=== PATIENT | male | born 1940 | race Caucasian/White ===

== ENCOUNTER 2016-06-15 21:56 | Emergency (ER) | payer MEDICARE, OTHER | END 2016-06-15 23:07 | disposition home or self-care (01) | DX: S01.01XA Laceration without foreign body of scalp, initial encounter (principal); W07.XXXA Fall from chair, initial encounter; Y92.009 Unspecified place in unspecified non-institutional (private) residence as the place of occurrence of the external cause; C91.10 Chronic lymphocytic leukemia of B-cell type not having achieved remission; Z95.5 Presence of coronary angioplasty implant and graft; Z85.828 Personal history of other malignant neoplasm of skin ==

== ENCOUNTER 2016-09-13 11:19 | Emergency (ER) | payer MEDICARE, OTHER ==
[2016-09-13 11:40] VITALS: BP 142/78
--- NOTE | 2016-09-13 13:35 | ED Physician Documentation ---
History of Present Illness - Stated complaint Stated Complaint: RASH ALL OVER - Chief complaint Chief Complaint: General - History obtained from History obtained from: Patient, Family () - History of Present Illness Timing: Today (Early last month developed allergic reaction with hives to Zithromax, was on steroid for quite some time and stopped about 5 days ago and the hives returned today.) Review of Systems Constitutional: denies: Fever, Chills Cardiac: denies: Chest pain / pressure, Palpitations Respiratory: denies: Dyspnea, Cough PD PAST MEDICAL HISTORY - Past Medical History Cardiovascular: None Respiratory: None Neuro: Head injury Endocrine/Autoimmune: None GI: GERD : None HEENT: Other Psych: None Musculoskeletal: None Derm: None - Past Surgical History Past Surgical History: Yes General: Hiatal hernia repair Cardiovascular: Coronary stent Derm: Skin cancer surgery - Present Medications Home Medications: Ambulatory Orders Medication Instructions Recorded Confirmed Propranolol ER [Inderal LA] 60 mg PO BID 12/15/14 09/13/16 Cholecalciferol (Vitamin D3) 2,000 unit PO DAILY 03/06/15 09/13/16 [Vitamin D3] Omeprazole 20 mg PO BID 03/06/15 09/13/16 oxyCODONE [Roxicodone] 5 mg PO Q6H PRN 03/06/15 09/13/16 Valacyclovir HCl [Valtrex] 500 mg PO BID 06/04/15 09/13/16 Acetaminophen [Tylenol] 500 mg PO Q8HR PRN 10/15/15 09/13/16 Prednisone 10 mg PO DAILY #10 tablet 09/13/16 - Allergies Allergies/Adverse Reactions: Allergies Allergy/AdvReac Type Severity Reaction Status Date / Time azithromycin Allergy Rash Verified 09/13/16 11:40 amlodipine AdvReac Edema Verified 06/15/16 22:17 fenofibrate nanocrystallized AdvReac Unknown Verified 06/15/16 22:17 * [From Tricor] fenofibrate,micronized * AdvReac Unknown Verified 06/15/16 22:17 [From Tricor] lisinopril AdvReac Respiratory Verified 06/15/16 22:17 - Social History Does the pt smoke?: No Smoking Status: Never smoker Does the pt drink ETOH?: Yes Does the pt have substance abuse?: No - Immunizations Immunizations are current?: Yes - POLST Patient has POLST: No PD ED PE NORMAL - Vitals Vital signs reviewed: Yes - General General: No acute distress, Well developed/nourished - HEENT HEENT: Pharynx benign - Respiratory Respiratory: No respiratory distress, Clear bilaterally - Derm Derm: Other (Mild urticaria, wrist flexor creases and behind the shoulders) - Psych Psych: Normal mood, Normal affect Results - Vitals Vitals: Vital Signs - 24 hr 09/13/16 11:33 Heart Rate 58 L Respiratory 16 Rate Blood Pressure 142/78 H O2 Saturation 96 Oxygen O2 Source Room air Departure - Departure Disposition: Home, Self Care Clinical Impression: Urticaria Condition: Good Record reviewed to determine appropriate education?: Yes Instructions: ED Urticaria Prescriptions: Prednisone 10 mg PO DAILY #10 tablet Comments: Take a steroid for 3 days, then take the rest with you and your trip should you have a recurrence. You can also take 25 mg/one tablet of Benadryl every 6 hours as needed for itching. Your blood pressure was elevated today on check in to the emergency department. This does not mean that you have hypertension, it is a common phenomenon to check into the emergency department and have elevated blood pressure. I recommend that you see your primary care physician within the week to have it rechecked when you're feeling better.
== END 2016-09-13 13:38 | disposition home or self-care (01) ==
LOC: ED 11:19
DX: L50.9 Urticaria, unspecified (principal); R03.0 Elevated blood-pressure reading, without diagnosis of hypertension
CPT/HCPCS: 99283

== ENCOUNTER 2016-11-07 20:19 | Emergency (ER) | payer MEDICARE, OTHER ==
[2016-11-07 21:30] LABS: BASOPHILS % (AUTO) 1.3 %; EOSINOPHILS % (AUTO) 0.7 %; HCT - HEMATOCRIT 43.9 % (42.0-52.0); LYMPHOCYTES % (AUTO) 30.7 %; MEAN CORPUSCULAR HEMOGLOBIN 31.1 pg (27.0-31.0); MEAN CORPUSCULAR VOLUME 97.3 fL (80.0-94.0); MEAN PLATELET VOLUME 8.3 fL (7.4-11.4); MONOCYTES % (AUTO) 21.6 %; NEUTROPHILS % (AUTO) 45.7 %; RED BLOOD COUNT 4.51 10^6/uL (4.70-6.10); RED CELL DISTRIBUTION WIDTH 14.2 % (12.0-15.0)
--- NOTE | 2016-11-07 21:33 | ED Physician Documentation ---
PD HPI FOCAL NEURO - Stated complaint Stated Complaint: MEDICATION SIDE EFFECT - Chief complaint Chief Complaint: Neuro - History obtained from History obtained from: Patient, Family () - History of Present Illness Timing - onset: Other (76-year-old gentleman with CLL and thrombocytopenia, recently restarted on tranexamic acid and a new medication (Nplate) with increasing word finding difficulties that became acutely worse at 5 PM tonight. He has had ongoing mild headaches for the last 3 weeks.) Review of Systems Ten Systems: 10 systems reviewed and negative Constitutional: reports: Fever Ears: reports: Reviewed and negative Nose: reports: Reviewed and negative Throat: reports: Reviewed and negative PD PAST MEDICAL HISTORY - Past Medical History Past Medical History: Yes Cardiovascular: None Respiratory: None Neuro: Head injury Endocrine/Autoimmune: None GI: GERD : None HEENT: Other Psych: None Musculoskeletal: None Derm: None Other Past Medical History: CLL & MDS - Past Surgical History Past Surgical History: Yes General: Hiatal hernia repair Cardiovascular: Coronary stent Derm: Skin cancer surgery - Present Medications Home Medications: Ambulatory Orders Medication Instructions Recorded Confirmed Propranolol ER [Inderal LA] 60 mg PO BID 12/15/14 11/07/16 Cholecalciferol (Vitamin D3) 2,000 unit PO DAILY 03/06/15 11/07/16 [Vitamin D3] Omeprazole 20 mg PO BID 03/06/15 11/07/16 oxyCODONE [Roxicodone] 5 mg PO Q6H PRN 03/06/15 11/07/16 Valacyclovir HCl [Valtrex] 500 mg PO BID 06/04/15 11/07/16 Acetaminophen [Tylenol] 500 mg PO Q8HR PRN 10/15/15 11/07/16 Romiplostim IM 11/07/16 Tranexamic Acid 650 mg PO BID 11/07/16 11/07/16 - Allergies Allergies/Adverse Reactions: Allergies Allergy/AdvReac Type Severity Reaction Status Date / Time azithromycin Allergy Rash Verified 11/07/16 21:20 amlodipine AdvReac Edema Verified 11/07/16 21:20 fenofibrate nanocrystallized AdvReac Unknown Verified 11/07/16 21:20 * [From Tricor] fenofibrate,micronized * AdvReac Unknown Verified 11/07/16 21:20 [From Tricor] lisinopril AdvReac Respiratory Verified 11/07/16 21:20 - Social History Does the pt smoke?: No Smoking Status: Never smoker Does the pt drink ETOH?: Yes Does the pt have substance abuse?: No - Family History Family history: reports: Non contributory - Immunizations Immunizations are current?: Yes - POLST Patient has POLST: No PD ED PE NORMAL - Vitals Vital signs reviewed: Yes - General General: No acute distress, Well developed/nourished - HEENT HEENT: PERRL, EOMI - Neck Neck: Supple, no meningeal sign, No bony TTP, No bruit - Cardiac Cardiac: RRR, No murmur - Respiratory Respiratory: No respiratory distress, Clear bilaterally - Abdomen Abdomen: Soft, Non tender - Derm Derm: Normal color, Warm and dry, Other (Pet[place]ia all over) - Extremities Extremities: No deformity, No tenderness to palpate - Neuro Neuro: No motor deficit, No sensory deficit - Psych Psych: Normal mood, Normal affect NIHSS - Time Time: 21:10 - Level of Consciousness Level of consciousness: (0) Alert, Keenly responsive LOC Questions: (2) Answers neither correct LOC Commands: (0) Performs both correctly - Gaze Best Gaze: (0) Normal - Visual Visual: (0) No loss - Facial Palsy Facial Palsy: (0) Normal, symmetrical movement - Motor Arms (both separate) Motor Arm (right): (0) No drift Motor Arm (left): (0) No drift - Motor Legs (both separate) Motor Leg (right): (0) No drift Motor Leg (left): (0) No drift - Limb Ataxia Limb Ataxia: (0) Absent - Sensory Sensory: (0) Normal - Best Language Best Language: (2) Severe aphasia - Dysarthria Dysarthria: (0) Normal - Extinction and Inattention (formally neg Extinction and inattention: (0) No abnormality - Total Score/Results Total Score/Result: 4 Results - Vitals Vitals: Vital Signs - 24 hr 11/07/16 11/07/16 11/07/16 20:34 21:10 21:31 Temperature 36.1 C L Heart Rate 64 63 64 Respiratory 17 16 15 Rate Blood Pressure 186/78 H 167/71 H 167/71 H O2 Saturation 97 98 100 11/07/16 11/07/16 11/07/16 22:05 22:24 22:45 Temperature Heart Rate 64 62 62 Respiratory 18 18 17 Rate Blood Pressure 167/85 H 156/77 H 152/75 H O2 Saturation 96 97 97 Oxygen O2 Source Room air - EKG (time done) 2058 Rate: Rate (enter#) (61) Rhythm: NSR [place]: Normal Intervals: Normal [place] QRS: Normal Ischemia: Q waves (small inferior) Computer interpretation: Agree with computer - Labs Labs: Laboratory Tests 11/07/16 11/07/16 11/07/16 21:05 21:05 21:05 WBC 13.0 H RBC 4.51 L Hgb 14.0 Hct 43.9 MCV 97.3 H MCH 31.1 H MCHC 32.0 RDW 14.2 Plt Count 17 L* MPV 8.3 Neut # Not Reportable Lymph # Not Reportable [place] # Not Reportable Eos # Not Reportable Baso # Not Reportable Absolute Nucleated RBC Not Reportable Total Counted 100 Band Neuts % (Manual) 3 Reactive Lymphs % (Man) 16 Neutrophils # (Manual) 5.6 Lymphocytes # (Manual) 4.7 H Monocytes # (Manual) 2.6 H Eosinophils # (Manual) 0.1 Nucleated RBCs 1 Differential Comment MANUAL DIFFERENTIAL WBC Morphology 1+ VACUOLATION RBC Morph Micro Appear 1+ POLYCHROMASIA PT 14.5 H INR 1.3 H APTT 43.2 H Sodium 134 L Potassium 4.1 Chloride 102 Carbon Dioxide 26 Anion Gap 6.0 BUN 13 Creatinine 0.7 Estimated GFR (MDRD) 109 Glucose 113 H POC Whole Bld Glucose Calcium 9.3 Total Bilirubin 0.7 AST 80 H ALT 105 H Alkaline Phosphatase 58 Total Creatine Kinase 76 CK-MB (CK-2) Troponin I Total Protein 7.1 Albumin 4.1 Globulin 3.0 Albumin/Globulin Ratio 1.4 Lipase 43 11/07/16 11/07/16 21:05 21:08 WBC RBC Hgb Hct MCV MCH MCHC RDW Plt Count MPV Neut # Lymph # [place] # Eos # Baso # Absolute Nucleated RBC Total Counted Band Neuts % (Manual) Reactive Lymphs % (Man) Neutrophils # (Manual) Lymphocytes # (Manual) Monocytes # (Manual) Eosinophils # (Manual) Nucleated RBCs Differential Comment WBC Morphology RBC Morph Micro Appear PT INR APTT Sodium Potassium Chloride Carbon Dioxide Anion Gap BUN Creatinine Estimated GFR (MDRD) Glucose POC Whole Bld Glucose 104 H Calcium Total Bilirubin AST ALT Alkaline Phosphatase Total Creatine Kinase CK-MB (CK-2) 1.3 Troponin I < 0.04 Total Protein Albumin Globulin Albumin/Globulin Ratio Lipase - Rads (name of study) CT Head Radiology: EMP read contemporaneously (No acute abnormality, stable left temporal encephalomalacia) PD MEDICAL DECISION MAKING - ED course ED course: 76-year-old gentleman with history of thrombocytopenia presents with acutely worse aphasia which has been somewhat gradual in onset. Given the not completely acute time course and his severe thrombocytopenia I do not think he is a TPA candidate. CT head shows no acute changes. Called to Dr. Campbell for observation/admission at 10:[address] Campbell and requests transfer to tertiary facility for onc/neuro consult given pt complexity. Accepted by hospitalist, Dr Stern at [facility] at [phone] Departure - Departure Disposition: 02 Transfer Acute Care Hosp Clinical Impression: Aphasia, Thrombocytopenia Condition: Stable
[2016-11-07 21:36] LABS: INR 1.3 (0.8-1.2); PT - PROTHROMBIN TIME 14.5 secs (9.9-12.6)
[2016-11-07 21:43] LABS: PARTIAL THROMBOPLASTIN TIME 43.2 secs (24.9-33.3)
[2016-11-07 21:44] LABS: ALBUMIN/GLOBULIN RATIO 1.4 (1.0-2.2); BILIRUBIN,TOTAL 0.7 mg/dL (0.2-1.0); CALCIUM 9.3 mg/dL (8.5-10.3); CREATININE 0.7 mg/dL (0.6-1.2); POTASSIUM 4.1 mmol/L (3.5-5.0); TOTAL PROTEIN 7.1 g/dL (6.7-8.2)
[2016-11-07 21:49] LABS: TROPONIN I < 0.04 ng/mL (<0.49)
[2016-11-07 21:50] LABS: BAND NEUTROPHILS % (MANUAL) 3 %; CREATINE KINASE MB 1.3 ng/mL (0.6-6.3); EOSINOPHILS % (MANUAL) 1 %; LYMPHOCYTES % (MANUAL) 20 %; NEUTROPHILS % (MANUAL) 40 %; TOTAL CELLS COUNTED 100
[2016-11-07 21:51] LABS: NP AUTO DIFFERENTIAL? YES; NP MAN DIFFERENTIAL? NO; WBC MORPHOLOGY (MULTIPLE) 1+ VACUOLATION (NORMAL)
[2016-11-07] MEDS ORDERED: ACETAMINOPHEN 325 MG TABLET PO STA (22:46)
[2016-11-07] MEDS ORDERED: ACETAMINOPHEN 325 MG TABLET PO ONE (22:49)
--- NOTE | 2016-11-07 22:49 | CT Preliminary Report ---
Exam: CT Head W/O IMPRESSION: 1. No acute intracranial process. 2. Stable left temporal encephalomalacia. 3. Increased mucosal thickening in the right frontal sinus compared to the pre-brain CT from 06/15/19 17. [facility] SITE ID: [id number]
--- NOTE | 2016-11-07 22:51 | CT Report ---
EXAM: CT HEAD EXAM DATE: 11/07/2016 10:20 PM. CLINICAL HISTORY: Aphasia. COMPARISON: Brain CT from 06/15/2016. TECHNIQUE: Multiaxial CT images were obtained from the foramen magnum to the vertex. IV contrast: Non e. Reformats: Coronal. In accordance with CT protocol optimization, one or more of the following dose reduction techniques w ere utilized for this exam: automated exposure control, adjustment of mA and/or KV based on patient s ize, or use of iterative reconstructive technique. FINDINGS: Parenchyma: No intraparenchymal hemorrhage. No evidence of mass, midline shift, or CT findings of acu te infarction. Moderate left temporal encephalomalacia is stable. Ariza-white differentiation is disti nct elsewhere in the brain. Extraaxial Spaces: Normal for age. No subdural or epidural collections identified. Ventricles: The ventricles and cortical sulci are moderately enlarged, consistent with age-related ti ssue loss. Sinuses: The orbits and mastoid sinuses are unremarkable. There is increased mucosal thickening in th e right frontal sinus compared to the prior CT. Bones: No evidence of fracture or calvarial defect. Other: Mild diffuse chronic microangiopathic white matter changes are evident. Mild intracranial athe rosclerosis is noted. IMPRESSION: 1. No acute intracranial process. 2. Stable left temporal encephalomalacia. 3. Increased mucosal thickening in the right frontal sinus compared to the pre-brain CT from 06/15/19 17. [facility] Referring Provider Line: [phone] SITE ID: [id number]
[2016-11-07 23:43] VITALS: BP 148/74
== END 2016-11-07 23:53 | disposition short-term general hospital (02) ==
LOC: ED 20:19
DX: R47.01 Aphasia (principal); D69.6 Thrombocytopenia, unspecified; C91.10 Chronic lymphocytic leukemia of B-cell type not having achieved remission; R94.31 Abnormal electrocardiogram [ECG] [EKG]; D46.9 Myelodysplastic syndrome, unspecified; Z95.5 Presence of coronary angioplasty implant and graft
CPT/HCPCS: 36415; 70450; 80053; 82550; 82553; 83690; 84484; 85025; 85610; 85730; 93005; 99285; A9270

== ENCOUNTER 2016-11-07 23:59 | Outpatient (CLI) | payer MEDICARE, OTHER | END 2016-11-08 | disposition short-term general hospital (02) | LOC: EMS 23:59 | PROVIDERS: ATTEND Surgery | DX: R47.02 Dysphasia (principal) | CPT/HCPCS: A0425; A0426 ==

== ENCOUNTER 2017-01-24 14:49 | Outpatient (CLI) | payer MEDICARE, OTHER | END 2017-01-24 14:50 | disposition critical access hospital (66) | LOC: EMS 14:49 | PROVIDERS: ATTEND Surgery | DX: S09.90XA Unspecified injury of head, initial encounter (principal); V09.09XA Pedestrian injured in nontraffic accident involving other motor vehicles, initial encounter; Y92.009 Unspecified place in unspecified non-institutional (private) residence as the place of occurrence of the external cause | CPT/HCPCS: A0425; A0429 ==

== ENCOUNTER 2017-01-24 14:57 | Emergency (ER) | payer MEDICARE, OTHER ==
[2017-01-24 15:05] VITALS: BP 173/84
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
--- NOTE | 2017-01-24 15:49 | CT Preliminary Report ---
Exam: CT Head W/O IMPRESSION: 1. Negative for acute hemorrhage, localizing edema or mass effect. 2. 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 [facility] SITE ID: [id number]
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
--- NOTE | 2017-01-24 15:55 | CT Preliminary Report ---
Exam: CT Cervical Spine W/O IMPRESSION: 1. Negative for acute fracture and subluxation. 2. Mild degenerative disease. 3. Cervical lymphadenopathy. Right-sided central line. The lymph nodes are larger than 05/15/2015 and presumably represent malignancy. [facility] SITE ID: [id number]
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
--- NOTE | 2017-01-24 17:40 | XRAY Preliminary Report ---
Exam: XR Tib/Fib RT IMPRESSION: Mild soft tissue swelling noted about the calf region without underlying osseous abnormal ity. [facility] SITE ID: [id number]
--- NOTE | 2017-01-24 17:42 | XRAY Report ---
EXAM: RIGHT TIBIA/FIBULA RADIOGRAPHY EXAM DATE: 01/24/2017 05:18 PM. CLINICAL HISTORY: Calf contusion swelling. COMPARISON: None. TECHNIQUE: 2 views. FINDINGS: Bones: Normal. No fracture or bone lesion. Joints: The visualized knee and ankle joints are normal. No effusions. Soft Tissues: There is mild soft tissue swelling noted about the calf region. IMPRESSION: Mild soft tissue swelling noted about the calf region without underlying osseous abnormal ity. [facility] Referring Provider Line: [phone] SITE ID: [id number]
== END 2017-01-24 19:48 | disposition home or self-care (01) ==
LOC: EDUNIT# → ED 14:57
DX: S16.1XXA Strain of muscle, fascia and tendon at neck level, initial encounter (principal); S80.11XA Contusion of right lower leg, initial encounter; S00.81XA Abrasion of other part of head, initial encounter; V09.00XA Pedestrian injured in nontraffic accident involving unspecified motor vehicles, initial encounter; Y93.53 Activity, golf; Y92.39 Other specified sports and athletic area as the place of occurrence of the external cause; K21.9 Gastro-esophageal reflux disease without esophagitis; Z85.828 Personal history of other malignant neoplasm of skin
CPT/HCPCS: 70450; 72125; 99283; 99284

== ENCOUNTER 2017-05-17 12:58 | Outpatient (CLI) | payer MEDICARE, OTHER | END 2017-05-17 12:59 | disposition critical access hospital (66) | LOC: EMS 12:58 | PROVIDERS: ATTEND Surgery | DX: R53.1 Weakness (principal) | CPT/HCPCS: A0425; A0429 ==

== ENCOUNTER 2017-05-17 13:07 | Emergency (ER) | payer MEDICARE, OTHER ==
[2017-05-17] MEDS ORDERED: SODIUM CHLORIDE 0.9% 1,000 ML IV ONE ×2 (13:53→15:55)
--- NOTE | 2017-05-17 13:55 | ED Physician Documentation ---
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 Last night he told his he was too weak to get up to go to bed.She has brought him here today with decreased interaction and decreased oral intake of fluids. Review of Systems Constitutional: denies: Fever Eyes: denies: Decreased vision Ears: denies: Ear pain Nose: denies: Congestion Throat: denies: Sore throat Cardiac: denies: Chest pain / pressure, Palpitations Respiratory: denies: Dyspnea, Cough GI: denies: Abdominal Pain, Nausea, Vomiting : denies: Dysuria, Frequency Skin: denies: Rash Musculoskeletal: denies: Neck pain, Back pain Neurologic: reports: Generalized weakness, Headache. denies: Focal weakness, Numbness, Head injury PD PAST MEDICAL HISTORY - Past Medical History Cardiovascular: None Respiratory: None Neuro: TIA, Head injury Endocrine/Autoimmune: None GI: GERD : None HEENT: Other Psych: None Musculoskeletal: None Derm: None - Past Surgical History Past Surgical History: Yes General: Hiatal hernia repair Cardiovascular: Coronary stent Derm: Skin cancer surgery - Present Medications Home Medications: Ambulatory Orders Medication Instructions Recorded Confirmed Propranolol ER [Inderal LA] 60 mg PO DAILY 12/15/14 05/17/17 Cholecalciferol (Vitamin D3) 2,000 unit PO DAILY 03/06/15 05/17/17 [Vitamin D3] Omeprazole 20 mg PO DAILY 03/06/15 05/17/17 oxyCODONE [Roxicodone] 5 mg PO Q6H PRN 03/06/15 05/17/17 Valacyclovir HCl [Valtrex] 500 mg PO BID 06/04/15 05/17/17 Acetaminophen [Tylenol] 500 mg PO Q8HR PRN 10/15/15 05/17/17 Tranexamic Acid 1,300 mg PO TID 11/07/16 05/17/17 Multivitamin [Multiple Vitamins] 1 tab PO DAILY 12/01/16 05/17/17 - Allergies Allergies/Adverse Reactions: Allergies Allergy/AdvReac Type Severity Reaction Status Date / Time azithromycin Allergy Rash Verified 11/07/16 21:20 amlodipine AdvReac Edema Verified 11/07/16 21:20 fenofibrate nanocrystallized AdvReac Unknown Verified 11/07/16 21:20 * [From Tricor] fenofibrate,micronized * AdvReac Unknown Verified 11/07/16 21:20 [From Tricor] lisinopril AdvReac Respiratory Verified 11/07/16 21:20 - Social History Does the pt smoke?: No Smoking Status: Never smoker Does the pt drink ETOH?: Yes Does the pt have substance abuse?: No - Immunizations Immunizations are current?: Yes - POLST Patient has POLST: No PD ED PE NORMAL - Vitals Vital signs reviewed: Yes (hypertensive mild ) - General General: No acute distress, Well developed/nourished - HEENT HEENT: Atraumatic, PERRL, Other (dry mucous membranes) - Neck Neck: Supple, no meningeal sign, No bony TTP - Cardiac Cardiac: RRR, Other (2/6 holosystolic murmer at LSB) - Respiratory Respiratory: No respiratory distress, Clear bilaterally - Abdomen Abdomen: Soft, Non tender - Back Back: No CVA TTP, No spinal TTP - Derm Derm: Normal color, Warm and dry, No rash - Extremities Extremities: No deformity, No edema - Neuro Neuro: No motor deficit, No sensory deficit Eye Opening: Spontaneous Motor: Obeys Commands Verbal: Oriented GCS Score: 15 - Psych Psych: Normal mood, Normal affect Results - Vitals Vitals: Vital Signs - 24 hr 05/17/17 05/17/17 05/17/17 13:08 14:21 16:01 Temperature 37.5 C Heart Rate 64 66 66 Respiratory 16 18 18 Rate Blood Pressure 131/74 H 150/76 H 141/78 H O2 Saturation 96 96 96 Oxygen O2 Source Room air - EKG (time done) 1317 Rate: Rate (enter#) (64) Rhythm: NSR Ischemia: Q waves (inferior ) Compare to prior EKG: Unchanged from prior EKG (11-07-2016) Computer interpretation: Agree with computer - Labs Labs: Laboratory Tests 05/17/17 05/17/17 05/17/17 14:00 14:00 14:00 WBC 18.8 H RBC 4.15 L Hgb 13.1 L Hct 40.7 L MCV 98.1 H MCH 31.7 H MCHC 32.3 RDW 14.3 Plt Count 6 L* MPV 9.5 Neut # Not Reportable Lymph # Not Reportable [place] # Not Reportable Eos # Not Reportable Baso # Not Reportable Absolute Nucleated RBC Not Reportable Total Counted 100 Band Neuts % (Manual) 1 Abnorm Lymph % (Manual) 0 Blast Cells % 5 H* Nucleated RBC % Not Reportable Neutrophils # (Manual) 5.1 Lymphocytes # (Manual) 11.8 H Monocytes # (Manual) 0.9 Eosinophils # (Manual) 0.0 Basophils # (Manual) 0.0 Nucleated RBCs 1 Differential Comment MANUAL DIFFERENTIAL Platelet Estimate DECREASED (<130,000) Platelet Morphology NORMAL APPEARANCE RBC Morph Micro Appear 1+ POLYCHROMASIA Sodium 130 L Potassium 4.4 Chloride 96 L Carbon Dioxide 27 Anion Gap 7.0 BUN 13 Creatinine 0.8 Estimated GFR (MDRD) 94 Glucose 98 Calcium 9.1 Total Bilirubin 1.0 AST 58 H ALT 27 Alkaline Phosphatase 52 Troponin I < 0.04 Total Protein 7.4 Albumin 4.0 Globulin 3.4 Albumin/Globulin Ratio 1.2 Lipase 43 - Rads (name of study) CT head without Radiology: Prelim report reviewed (Impression: 1. Negative for intracranial hemorrhage or mass-effect. 2. Old left temporal lobe infarct.3. 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 He is administered IV saline. Departure - Departure Disposition: 01 Home, Self Care Clinical Impression: Dehydration Condition: Stable Instructions: ED Dehydration Follow-Up: Tomy Mckeon MD [Primary Care Provider] - Comments: Today in [place] his blood work there is evidence of blast cells. This can be something difficult to treat and a follow-up with Dr. Hernandez is indicated.
[2017-05-17 14:18] LABS: BASOPHILS % (AUTO) 2.9 %; EOSINOPHILS % (AUTO) 0.2 %; HGB - HEMOGLOBIN 13.1 g/dL (14.0-18.0); MEAN CORPUSCULAR HEMOGLOBIN 31.7 pg (27.0-31.0); MEAN CORPUSCULAR HGB CONC 32.3 g/dL (32.0-36.0); MEAN CORPUSCULAR VOLUME 98.1 fL (80.0-94.0); MEAN PLATELET VOLUME 9.5 fL (7.4-11.4); MONOCYTES % (AUTO) 12.2 %; NEUTROPHILS % (AUTO) 27.7 %; RED BLOOD COUNT 4.15 10^6/uL (4.70-6.10); RED CELL DISTRIBUTION WIDTH 14.3 % (12.0-15.0); WHITE BLOOD COUNT 18.8 x10^3/uL (4.8-10.8)
[2017-05-17 14:21] LABS: ALBUMIN/GLOBULIN RATIO 1.2 (1.0-2.2); CALCIUM 9.1 mg/dL (8.5-10.3); CREATININE 0.8 mg/dL (0.6-1.2); TOTAL PROTEIN 7.4 g/dL (6.7-8.2)
[2017-05-17 14:28] LABS: PLT - PLATELET COUNT 6 10^3/uL (130-450)
[2017-05-17 14:29] LABS: ABNORMAL LYMPHS % (MANUAL) 0 %
[2017-05-17 14:59] LABS: BAND NEUTROPHILS % (MANUAL) 1 %; LYMPHOCYTES # (MANUAL) 11.8 10^3/uL (1.5-3.5); LYMPHOCYTES % (MANUAL) 63 %; MONOCYTES # (MANUAL) 0.9 10^3/uL (0.0-1.0); NEUTROPHILS # (MANUAL) 5.1 10^3/uL (1.5-6.6); NEUTROPHILS % (MANUAL) 26 %
[2017-05-17 15:00] LABS: DIFFERENTIAL COMMENT MANUAL DIFFERENTIAL; PLATELET ESTIMATE, MANUAL DECREASED (<130,000) (NORMAL); PLATELET MORPHOLOGY NORMAL APPEARANCE (NORMAL); RBC MORPHOLOGY (MULTIPLE) 1+ POLYCHROMASIA (NORMAL)
--- NOTE | 2017-05-17 15:56 | CT Report ---
EXAM: CT HEAD EXAM DATE: 05/17/2017 02:52 PM. CLINICAL HISTORY: Confusion/increased symptoms of aphasia. COMPARISON: 01/24/2017. TECHNIQUE: Multiaxial CT images were obtained from the foramen magnum to the vertex. Reformats: Coron al. IV contrast: None. In accordance with CT protocol optimization, one or more of the following dose reduction techniques w ere utilized for this exam: automated exposure control, adjustment of mA and/or KV based on patient s ize, or use of iterative reconstructive technique. FINDINGS: Parenchyma: There is a moderate degree of chronic encephalomalacia and volume loss in the left tempor al lobe. There is mild to moderate periventricular white matter hypodensity. Negative Ma[place] cranial hemorrhage. Extraaxial Spaces: No subdural or epidural collections identified. Ventricles: Ventricles are symmetric in size and normal in location. The ventricles appear enlarged c onsistent with volume loss. Sinuses and Orbits: There is mucosal thickening of the right frontal sinus. No air-fluid level. Bones: No evidence of fracture or calvarial defect. Other: There are tortuous orbital vessels IMPRESSION: 1. Negative for intracranial hemorrhage and mass effect. 2. Old left temporal lobe infarct. 3. 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 [facility] Referring Provider Line: [phone] SITE ID: [id number]
[2017-05-17 16:04] VITALS: BP 141/78
== END 2017-05-17 17:23 | disposition home or self-care (01) ==
LOC: EDUNIT# → ED 13:07
DX: E86.0 Dehydration (principal); Z86.73 Personal history of transient ischemic attack (TIA), and cerebral infarction without residual deficits; K21.9 Gastro-esophageal reflux disease without esophagitis; Z87.820 Personal history of traumatic brain injury
CPT/HCPCS: 36415; 70450; 80053; 83690; 84484; 85025; 93005; 96360; 96361; 99283; 99284

== ENCOUNTER 2017-05-18 10:02 | Outpatient (CLI) | payer MEDICARE, OTHER | END 2017-05-18 10:03 | disposition critical access hospital (66) | LOC: EMS 10:02 | PROVIDERS: ATTEND Surgery | DX: R41.0 Disorientation, unspecified (principal); R32 Unspecified urinary incontinence; S00.83XA Contusion of other part of head, initial encounter; X58.XXXA Exposure to other specified factors, initial encounter | CPT/HCPCS: A0425; A0429 ==

== ENCOUNTER 2017-05-24 09:16 | Outpatient (CLI) | payer MEDICARE, OTHER | END 2017-05-24 09:17 | disposition critical access hospital (66) | LOC: EMS 09:16 | PROVIDERS: ATTEND Surgery | DX: M54.9 Dorsalgia, unspecified (principal); W18.30XA Fall on same level, unspecified, initial encounter; Y92.129 Unspecified place in nursing home as the place of occurrence of the external cause | CPT/HCPCS: A0425; A0429 ==

== ENCOUNTER 2017-05-24 09:20 | Emergency (ER) | payer MEDICARE, OTHER ==
--- NOTE | 2017-05-24 09:55 | ED Physician Documentation ---
PD HPI Fall - Stated complaint Stated Complaint: FALL - Chief complaint Chief Complaint: Trauma Ext - History obtained from History obtained from: Patient, EMS, Caregiver - History of Present Illness Mechanism of injury: Unknown (he was found just off edge of bed in corner of room, presume fell. Complained of some back pain. No apparent head injury.) Fall distance: From bed Where injury occurred: Other ([facility]) Timing - onset: Last night Injury(ies) location: Back (thoracolumbar area). No: Head, Neck, Chest, Abdomen Associated symptoms: No: LOC, Weakness, Paresthesias, Nausea / vomiting Worsens with: Movement (only mild pain), Palpation Contributing factors: No: Anticoagulated (but has very low platelet count due to bone marrow issue (CLL)) Similar symptoms before: Has not had sx before Recently seen: Emergency Dept, Admitted (due to other problem with confusion and general weakness without specific findings. Discharged to [facility] for care/ rehab.) Review of Systems Constitutional: denies: Fever, Chills Nose: denies: Rhinorrhea / runny nose, Congestion Throat: denies: Sore throat Respiratory: denies: Cough GI: denies: Vomiting, Diarrhea, Bloody / black stool : reports: Incontinent. denies: Dysuria Skin: denies: Rash, Lesions Endocrine: reports: Easy bruising / bleeding. denies: Weight loss PD PAST MEDICAL HISTORY - Past Medical History Cardiovascular: None Respiratory: None Neuro: TIA, Head injury Endocrine/Autoimmune: None GI: GERD : None HEENT: Other Psych: None Musculoskeletal: None Derm: None - Past Surgical History Past Surgical History: Yes General: Hiatal hernia repair Cardiovascular: Coronary stent Derm: Skin cancer surgery - Present Medications Home Medications: Ambulatory Orders Medication Instructions Recorded Confirmed Propranolol ER [Inderal LA] 60 mg PO DAILY 12/15/14 05/24/17 Cholecalciferol (Vitamin D3) 2,000 unit PO DAILY 03/06/15 05/24/17 [Vitamin D3] Omeprazole 20 mg PO QDAC 03/06/15 05/24/17 Valacyclovir HCl [Valtrex] 500 mg PO BID 06/04/15 05/24/17 Acetaminophen [Tylenol] 500 mg PO Q8HR PRN 10/15/15 05/24/17 Tranexamic Acid 1,300 mg PO TID 11/07/16 05/24/17 Multivitamin [Multiple Vitamins] 1 tab PO DAILY 12/01/16 05/24/17 Propranolol ER [Inderal LA] 120 mg PO QPM 05/18/17 05/24/17 oxyCODONE [Roxicodone] 5 mg PO Q6H PRN #30 tablet 05/20/17 05/24/17 - Allergies Allergies/Adverse Reactions: Allergies Allergy/AdvReac Type Severity Reaction Status Date / Time azithromycin Allergy Rash Verified 05/24/17 09:24 amlodipine AdvReac Edema Verified 05/24/17 09:24 fenofibrate nanocrystallized AdvReac Unknown Verified 05/24/17 09:24 * [From Tricor] fenofibrate,micronized * AdvReac Unknown Verified 05/24/17 09:24 [From Tricor] lisinopril AdvReac Respiratory Verified 05/24/17 09:24 - Social History Does the pt smoke?: No Smoking Status: Never smoker Does the pt drink ETOH?: Yes Does the pt have substance abuse?: No - Immunizations Immunizations are current?: Yes - POLST Patient has POLST: No POLST Status: DNR PD ED PE NORMAL - Vitals Vital signs reviewed: Yes - General General: Alert and oriented X 3, No acute distress, Well developed/nourished, Other (poor short term memory. Seems in pleasant mood. ) - HEENT HEENT: Atraumatic (no acute tenderness. Yellow/old bruising noted right lateral periorbital area, which was present on recent admission. ), Pharynx benign - Neck Neck: Supple, no meningeal sign, No bony TTP, No adenopathy - Cardiac Cardiac: RRR, No murmur - Respiratory Respiratory: Clear bilaterally - Abdomen Abdomen: Soft, Non tender. No: Normal bowel sounds (decreased) - Male Male : Deferred - Rectal Rectal: Deferred - Back Back: Other (some tenderness to palpation in thoracolumbar area. ) - Derm Derm: Normal color, Warm and dry - Extremities Extremities: Other (no focal tenderness. Several small bruised on arms and antecubital areas look older, presume from IV/blood draw sites from recent hospitalization. ) - Neuro Neuro: medical staff coordinator 2-12 intact, No motor deficit, No sensory deficit Eye Opening: Spontaneous Motor: Obeys Commands Verbal: Oriented GCS Score: 15 Results - Vitals Vitals: Vital Signs - 24 hr 05/24/17 05/24/17 05/24/17 09:22 11:31 13:08 Temperature 36.2 C L Heart Rate 59 L 55 L 59 L Respiratory 20 16 20 Rate Blood Pressure 180/105 H 146/89 H 144/86 H O2 Saturation 93 94 94 Oxygen O2 Source Room air - Rads (name of study) thoracolumbar CT Radiology: Prelim report reviewed PD MEDICAL DECISION MAKING - ED course Complexity details: reviewed old records, reviewed results, considered differential, d/w patient, d/w family () Departure - Departure Disposition: Home, Self Care Clinical Impression: Fall from bed Qualifiers: Encounter type: initial encounter Qualified Code(s): W06.XXXA - Fall from bed, initial encounter Back strain Qualifiers: Encounter type: initial encounter Qualified Code(s): S39.012A - Strain of muscle, fascia and tendon of lower back, initial encounter Condition: Stable Record reviewed to determine appropriate education?: Yes Instructions: ED Sprain Strain Lumbar Follow-Up: Tomy Mckeon MD [Primary Care Provider] - Comments: Your CT scans appear normal without any signs of fracture or hematoma. They do comment on a lot of lymph nodes present that are similar to prior CTs. Presume you will have some bruising or strain of the back muscles from the fall. Use Tylenol 650 mg 4 times a day as needed for pains. Recheck if further problems. Discharge Date/Time: 05/24/17 13:07
--- NOTE | 2017-05-24 11:15 | CT Preliminary Report ---
Exam: CT LUMBAR SPINE W/O IMPRESSION: 1. No acute fractures, no erosive or destructive changes. 2. L2-L3 shows a mild broad-based bulge, no central or foraminal stenosis. Prominent facets. 3. L3-L4 shows mild broad-based bulge, prominent facets. No stenosis. 4. L4-L5 shows prominent facets, and right-sided disk osteophyte complex causes moderately severe eduardo nosis. No central stenosis, left neural foramina is normal. 5. L5-S1 shows a broad-based disk bulge. 6. Comparing today's exam to previous CT shows there has been significant increase in size of retrocr ural, retroperitoneal, periportal lymph nodes. Review of the previous CT scan shows patient does have a diagnosis of lymphoma. Features are worrisome for recurrence. [facility] SITE ID: [id number]
--- NOTE | 2017-05-24 11:31 | CT Report ---
EXAM: CT LUMBAR SPINE WITHOUT CONTRAST EXAM DATE: 05/24/2017 10:37 AM. CLINICAL HISTORY: Fall from bed, pain in thoracolumbar area. COMPARISONS: 12/17/2017 CT abdomen and pelvis.. TECHNIQUE: Thin-section axial images were acquired of the lumbar spine from T12 to S1 without contras t. Post-processing: Coronal and sagittal reformats. Other: None. In accordance with CT protocol optimization, one or more of the following dose reduction techniques w ere utilized for this exam: automated exposure control, adjustment of mA and/or KV based on patient s ize, or use of iterative reconstructive technique. FINDINGS: Alignment: No scoliosis or spondylolisthesis. Bones: Five [id number]-adw-[id number] lumbar vertebral bodies are present. No fractures. No erosive or destruct altaf changes are noted. Disk Levels/Facets: T12-L1: Mild broad-based bulge, no focal protrusion. No central or foraminal stenosis. L1-L2: Mild broad-based bulge, no central or foraminal stenosis. Slightly prominent facets. L2-L3: Mild broad-based bulge, no central or foraminal stenosis. Slightly prominent facets. L3-L4: Mild broad-based disk bulge is seen. Quite prominent facets. No central or foraminal stenosis. L4-L5: Disk space height loss, broad-based disk bulge. Prominent facets. On the right side, disk oste ophyte complex causes significant foraminal narrowing on series 8 image 72. L5-S1: Broad-based disk bulge, mild left foraminal narrowing. Musculature: [id number] fatty atrophy of the multifidus muscle. Other: Comparing today's study to the previous exam shows there has been significant increase in size of retroperitoneal adenopathy. Adenopathy also seen in the region of the pancreatic head, roger, and duodenum. Reviews of previous reports shows this patient has a diagnosis of lymphoma. This is worris ome for recurrence. IMPRESSION: 1. No acute fractures, no erosive or destructive changes. 2. L2-L3 shows a mild broad-based bulge, no central or foraminal stenosis. Prominent facets. 3. L3-L4 shows mild broad-based bulge, prominent facets. No stenosis. 4. L4-L5 shows prominent facets. On the right side, disk osteophyte complex causes moderately severe stenosis. No central stenosis. Left neural foramen is normal. 5. L5-S1 shows a broad-based disk bulge. 6. Comparing today's exam to previous CT shows there has been significant increase in size of retrocr ural, retroperitoneal, and periportal lymph nodes. Review of the previous CT scan shows patient does have a diagnosis of lymphoma. These features are worrisome for recurrence. [facility] Referring Provider Line: [phone] SITE ID: [id number]
--- NOTE | 2017-05-24 11:31 | CT Preliminary Report ---
Exam: CT THORACIC SPINE W/O IMPRESSION: 1. No fractures, no erosive or destructive changes. 2. Multilevel B diffuse disk space height loss. On the right side multilevel marginal osteophytes als o seen. 3. Markedly enlarged lymph nodes in the supraclavicular fossa, chest, and abdomen. Review of the CT c hest from 10/18/2015 mentions a diagnosis of lymphoma. These features are worrisome for recurrent dis ease. [facility] SITE ID: [id number]
--- NOTE | 2017-05-24 11:39 | CT Report ---
EXAM: CT THORACIC SPINE WITHOUT CONTRAST EXAM DATE: 05/24/2017 10:37 AM. CLINICAL HISTORY: Fall from bed and pain thoracolumbar area. COMPARISONS: None. TECHNIQUE: Thin-section axial images were acquired of the thoracic spine from C7 to L1 without contra st. Post-processing: Coronal and sagittal reformats. Other: None. IV Contrast: None. In accordance with CT protocol optimization, one or more of the following dose reduction techniques w ere utilized for this exam: automated exposure control, adjustment of mA and/or KV based on patient s ize, or use of iterative reconstructive technique. FINDINGS: Alignment: No listhesis. 12 degrees of gentle levoscoliotic curvature throughout the thoracic spine. Bones: No fracture or bone lesion. Disk Levels/Facets: Diffuse disk space height loss throughout. On the right side, multilevel marginal osteophytes. C7-t1: Unremarkable. T1-T2: Unremarkable. T2-T3: Unremarkable. T3-T4: Unremarkable. T4-T5: Unremarkable. T5-T6: Unremarkable. T6-T7: Unremarkable. T7-T8: Unremarkable. T8-T9: Unremarkable. T9-T10: Unremarkable. T10-T11: Unremarkable. T11-T12: Unremarkable. T12-L1: Unremarkable. Musculature: Normal. No fatty atrophy. Other: Markedly enlarged hilar and mediastinal nodes, markedly enlarged lymph nodes in the supraclavi cular fossa bilaterally. Markedly enlarged lymph nodes below the diaphragm, retrocrural space, and pe riportal region. Vascular calcifications in both kidneys. No hydronephrosis. IMPRESSION: 1. No fractures, no erosive or destructive changes. 2. Multilevel diffuse disk space height loss. On the right side, multilevel marginal osteophytes are also seen. 3. Markedly enlarged lymph nodes in the supraclavicular fossa, chest, and abdomen. Review of the CT c hest from 10/18/2015 mentions a diagnosis of lymphoma. These features are worrisome for recurrent dis ease. [facility] Referring Provider Line: [phone] SITE ID: [id number]
[2017-05-24] MEDS ORDERED: ACETAMINOPHEN 325 MG TABLET PO STA (11:49)
[2017-05-24 13:11] VITALS: BP 144/86
== END 2017-05-24 13:07 | disposition home or self-care (01) ==
LOC: EDUNIT# → ED 09:20
DX: S39.012A Strain of muscle, fascia and tendon of lower back, initial encounter (principal); W06.XXXA Fall from bed, initial encounter; Y92.013 Bedroom of single-family (private) house as the place of occurrence of the external cause; Z86.73 Personal history of transient ischemic attack (TIA), and cerebral infarction without residual deficits; K21.9 Gastro-esophageal reflux disease without esophagitis
CPT/HCPCS: 72128; 72131; 99283; A9270